=== PATIENT | male | born 1985 | race Caucasian/White ===

== ENCOUNTER 2016-02-23 09:53 | Emergency (ER) | payer OTHER ==
[~2016-02-23 09:53] MED LIST: CELEXA20 MG PO; KLONOPIN1 MG PO
== END 2016-02-23 13:25 | disposition home or self-care (01) ==
LOC: D.ER 09:53
DX: S69.91XA Unspecified injury of right wrist, hand and finger(s), initial encounter (principal); X58.XXXA Exposure to other specified factors, initial encounter; Y93.89 Activity, other specified; Y92.019 Unspecified place in single-family (private) house as the place of occurrence of the external cause; F41.9 Anxiety disorder, unspecified; F98.8 Other specified behavioral and emotional disorders with onset usually occurring in childhood and adolescence